=== PATIENT | female | born 1940 | race Caucasian/White ===

== ENCOUNTER 2022-01-17 10:56 | Day surgery (SDC) | payer MEDICARE, BC, SELFPAY ==
[2022-01-17 11:18] VITALS: BP 185/90; PULSE 97; RESP 18; TEMP 36.3; O2SAT 98
[2022-01-17] MEDS: Tropicam./Phenyleph. (1/2.5%) 5 ML BTL OS ×3 (11:20→11:28)
--- NOTE | 2022-01-17 11:37 | W.ANESPRE ---
General Info Date of Service Date Performed: 01/17/22 Height: 5 ft 2 in Weight: 73.7 kg Body Mass Index (BMI): 29.7 Surgical Procedure: Operation Date: 01/17/22 14:40 Proposed Procedure Side Surgeon p Cataract Extraction with IOL Implant w/Glaucoma Stent Left Vega Gleason MD Meds Allergies and Home Medications Allergies Allergy/AdvReac Type Severity Reaction Status Date / Time Sulfa (Sulfonamide Allergy Intermediate Skin Rash Verified 01/17/22 11:10 Antibiotics) sulfamethoxazole Allergy Intermediate Hives Verified 01/17/22 11:10 [From Bactrim] trimethoprim [From Bactrim] Allergy Intermediate Hives Verified 01/17/22 11:10 Home Medication Medication Instructions Recorded conjugated estrogens 0.625 mg/gram 0.625 mg vaginal DIRECTED 01/13/22 vaginal cream diazepam 5 mg tablet 5 mg PO QHS PRN 01/13/22 latanoprost 0.005 % eye drops 1 drp ophthalmic (eye) HS 01/13/22 lisinopril 20 mg tablet 40 mg PO DAILY 01/13/22 multivitamin 1 tab PO DAILY 01/13/22 pravastatin 10 mg tablet 40 mg PO QHS 01/14/22 Current Visit Medications: Current Medications Generic Name Dose Route Start Last Admin Trade Name Freq PRN Reason Stop Dose Admin Acetaminophen 1,000 mg 01/17/22 06:00 Acetaminophen 500 Mg Tab PO Q4H PRN PRN Miscellaneous Medication 0 ml 01/17/22 06:00 Prednisolone 1%, Moxifloxacin 0.5%, Nepafenac 0.1% 5ml Btl OS DIRECTED [facility] Miscellaneous Medication 0 ml 01/17/22 06:00 01/17/22 11:28 Tropicam./Phenyleph. (1/2.5%) 5 Ml Btl OS 1 drp DIRECTED JULIETTE Administration Tetracaine HCl 0 ml 01/17/22 06:00 Tetracaine 0.5% 4 Ml Btl OS DIRECTED [facility] Medical History Medical History Anxiety Arthritis Atrophic vaginitis Cataract Depression Elevated fasting glucose Essential hypertension Foot pain, left Hyperlipemia Ingrown toenail of right foot Migraines Osteoporosis Polymyalgia Surgical History Surgical History History of tonsillectomy Tobacco Smoking/Tobacco Use Status: Never Substance Use Substance use: Never Substance use type: does not use Vital Signs and Lab Results Vital Signs Most Recent Vital Signs in EMR: Most Recent Vital Signs Temp Pulse Resp BP Pulse Ox 36.3 C L 97 H 18 185/90 H 98 01/17/22 11:18 01/17/22 11:18 01/17/22 11:18 01/17/22 11:18 01/17/22 11:18 Lab Results Blood Type / Crossmatch: No Data to Display Complete Blood Count: No Data to Display Complete Metabolic Panel: No Data to Display Liver Function Panel: No Data to Display Coagulation Panel: No Data to Display Cardiac Panel: No Data to Display Arterial Blood Gas: No Data to Display Venous Blood Gas: No Data to Display Pancreas Panel: No Data to Display Thyroid Panel: No Data to Display Infectious Disease: No Data to Display Blood Cultures: No Data to Display Toxicology Panel: No Data to Display Anesthesia Assessment and Plan Anesthesia History Personal History: No History of Anesthesia Complications Family History: No Family History of Anesthesia Complications Exercise Tolerance Exercise Tolerance: Metabolic Equivalents>4 Pertinent Negatives Pertinent Negatives: No Symptoms of GERD Cardiac & Pulmonary Exam Cardiac Exam: Normal S1/S2 Heart Sounds Pulmonary Exam: Clear Bilateral Breath Sounds Implantable Cardiac Device Does patient have a Pacemaker or an ICD?: No Airway Exam Known Difficult Airway: No Mallampati Class: 2 Mouth Opening: Normal (> 3cm) Thyromental Distance: Greater than 3 cm Neck Range of Motion: Full ROM Neck Circumference: Normal Teeth Condition: Normal Dentition ASA Classification ASA Score: ASA 2 Emergency Case?: No NPO Status NPO Status: NPO Clears >2 hours, Solids >8 hours Anesthesia Plan Resuscitation Status: Full Code Anesthesia Technique: MAC Anesthesia Airway Planned: Natural Airway Monitors Used: Standard Monitors
[2022-01-17 11:51] VITALS: BMI 29.7
[2022-01-17] MEDS: Tetracaine 0.5% 4 ML BTL OS (12:56)
[2022-01-17] MEDS: Lidocaine 2% Jelly 6 ML SYR (13:00)
[2022-01-17] MEDS: Povidone-Iodine Ophth 30 ML BTL (13:00)
[2022-01-17] MEDS: Balanced Salt Soln.-PLUS 500 ML BAG (13:05)
[2022-01-17] MEDS: Duovisc Viscoelastic System EACH 1 EACH (13:05)
[2022-01-17 13:39] VITALS: BP 141/77; PULSE 86; RESP 18; TEMP 36.5; O2SAT 96
--- NOTE | 2022-01-17 13:39 | W.PM.DSUDISC ---
Date of service: 01/17/22 Time of Service: 13:39 Discharge Plan Disposition Patient Disposition: HOME Condition: Good Discharge Details Attending Provider: Vega Gleason Primary Care Provider: Sera Reyez Home Meds and New Rx's Prescriptions: No Action multivitamin Tablet 1 tab PO DAILY latanoprost 0.005 % Drops 1 drp OPHTHALMIC (EYE) HS lisinopril 20 mg Tablet 40 mg PO DAILY conjugated estrogens 0.625 mg/gram Cream 0.625 mg VAGINAL DIRECTED Rx Instructions: off 5 days; repeat cycle diazepam 5 mg Tablet 5 mg PO QHS PRN pravastatin 10 mg Tablet 40 mg PO QHS Discharge Orders Discharge Orders: Discharge Order (Routine); Ordered 01/17/22 Ordered By: Vega Gleason DS: Diagnosis Discharge Diagnosis (1) Nuclear sclerotic cataract of left eye: Status: Resolved (2) Primary open angle glaucoma (POAG) of left eye, mild stage: Status: Chronic
--- NOTE | 2022-01-17 13:40 | W.PM.OP ---
Date of service: 01/17/22 Time of Service: 13:40 Operative Note Operative Note DATE OF PROCEDURE: 01/17/22 PRE-OP DIAGNOSIS: Nuclear cataract, left eye Primary open-angle glaucoma, left eye, mild stage PROCEDURE: 1. Cataract extraction using phacoemulsification with intraocular lens implant, left eye 2. Insertion of multiple anterior segment aqueous drainage devices (Glaukos iStent inject x 2) into trabecular meshwork, left eye SURGEON: Vega Gleason ANESTHESIA TYPE: Local By Surgeon and MAC Refer to Anesthesia Record ESTIMATED BLOOD LOSS: 0 PATHOLOGY: none sent COMPLICATIONS: None Patient was transported to: same day Patient's condition: stable Implants: 1. [employer] / [employer] Tecnis ZCB00 intraocular lens 2. Glaukos iStent inject trabecular micro-bypass stent x 2 Indications: 1. Progressive decreased vision due to cataract, left eye 2. Primary open angle glaucoma, left eye Procedure Description: CATARACT SURGERY OPERATIVE REPORT PREOPERATIVE DIAGNOSIS: Nuclear cataract, left eye Primary open-angle glaucoma, left eye, mild stage POSTOPERATIVE DIAGNOSIS: Same OPERATION: 1. Cataract extraction using phacoemulsification with posterior chamber intraocular lens implant, left eye. 2. Insertion of multiple anterior segment aqueous drainage devices (Glaukos iStent inject x 2) into trabecular meshwork, left eye IOL: IOL Donor Recruitment Manager/Model: [employer] Vision / MATHEW Tecnis ZCB00 IOL Power: + 25.0 diopters IOL Serial Number: [id number] Optic Diameter: 6.0mm Haptic/Overall Diameter: 13.0mm PHACO INFO: Luca [employer]ion Vision System with OZil and Active Fluidics Cumulative Dispersed Energy (CDE): 20.67 seconds TRABECULAR MICRO-BYPASS STENT INFO: Glaukos iStent inject x 2 Reference Number: [id number] Serial Number: [id number] SURGEON: Vega Gleason MD, RAQUEL ANESTHESIA: Monitored Anesthesia Care (MAC), with local sub-tenon's anesthetic infiltration COMPLICATIONS: None SPECIMENS: None INDICATIONS FOR PROCEDURE: The patient is a 81-year-old lady with history of diminished visual acuity in her left eye secondary to the development of significant nuclear cataract. She also has a history of primary open-angle glaucoma which is managed on 1 medication. The option of cataract surgery was offered to the patient and she wished to proceed. In addition, the option of glaucoma stent procedure at the time of cataract surgery was also offered to the patient and she wished to proceed with that as well. PROCEDURE: The correct surgical eye was identified and marked as the left eye and the pupil was dilated in the preoperative area using mydriatics and cycloplegics. The dilated pupil size was 6.0 mm. Oral sedation was administered in the form of an Imprimis MKO Melt (midazolam 3mg/ketamine 25mg/ondansetron 2mg). The patient was brought to the operating room where cardiopulmonary monitoring was instituted and surgical time-out was performed, confirming the correct operative eye and IOL power. Topical anesthesia was administered and ophthalmic povidone-iodine 5% was instilled into the conjunctival fornices. Lidocaine gel was applied to the cornea and the tressa-ocular area was prepped with Betadine 10% solution and draped in the usual sterile fashion for intraocular surgery, including an aperture drape. A Tegaderm transparent film dressing was cut in half and used to cover the lashes and lid margins. Care was taken to sequester the lashes and lid margins under the Tegaderm dressing. A lid speculum was placed between the lids of the operative eye and the Luca Lux[employer] Revalia operating microscope was maneuvered into position. Domenic scissors were then used to make a conjunctival buttonhole approximately 6mm posterior to the limbus in the inferonasal quadrant. Blunt dissection was carried out to expose bare sclera, and a blunt-tipped sub-tenon?s anesthesia cannula was introduced and passed posteriorly along the globe where non-preserved plain lidocaine was injected into posterior sub-Tenon?s space. A sideport knife was used to make a paracentesis port superior/superiortemporally. Intraocular phenylephrine/lidocaine was injected into the anterior chamber. The anterior chamber was then filled with viscoelastic. A 2.4mm keratome knife was used to create a half-thickness groove at the limbus and then to construct a three-plane near-clear corneal tunnel extending 2.0mm into clear cornea in the temporal position. . A flap was raised on the anterior capsule and capsulorhexis forceps were used to complete a continuous curvilinear capsulorhexis of 5.0 mm. Balanced salt solution was then used to perform cortical cleaving hydrodissection and nuclear hydrodelineation until the lens could be freely rotated within the capsular bag. The lens nucleus was then disassembled and removed within the capsular bag and iris plane using phacoemulsification. The lens nucleus was noted to be quite dense. Additional Viscoat was injected into the anterior chamber intermittently to protect the corneal endothelium. Residual cortical material was removed using the 45-degree angled silicone I/A tip with 0.3mm port. The posterior capsule was carefully polished to remove as much residual lens epithelial cells as safely possible. The capsular bag was then inflated and the anterior chamber deepened with viscoelastic. The lens implant described above was inserted into the capsular bag using the MATHEW [place] Injector. A Kuglen hook was used to dial the IOL into position. The anterior chamber was then slightly over-filled with viscoelastic. The microsope and the patient's head were tilted into the ideal position for viewing of the anterior chamber angle. Viscoelastic was placed on the cornea followed by a surgical gonionlens, and the anterior chamber angle landmarks were identified. The Kaboo Cloud Cameraukos iStent inject handpiece was introduced into the anterior chamber and the insertion sleeve was retracted once the injector was distal to the pupillary margin. The trocar was advanced through the central portion of the trabecular meshwork and into the back wall of Schlemm's canal in the superiornasal quadrant, with care taken to ensure the micro-insertion tube was perpendicular to the trabecular meshwork. The trabecular meshwork was lightly dimpled and the stent was injected without difficulty. The same procedure was then performed in the inferiornasal quradrant. Both stents were then examined and noted to be in good position within the trabecular meshwork. The microscope and the patients head were returned to the normal coaxial position. Viscoelatic was then removed from the anterior chamber using the I/A handpiece. The lens implant was noted to center nicely within the capsular bag. The incisions were stromally hydrated, and the anterior chamber was reformed using BSS. Then 0.5cc of moxifloxacin 1.0mg/ml were injected into the capsular bag and anterior chamber. The incisions were checked with a Weck spear and found to be secure. Several drops of ophthalmic povidone-iodine 5% were then applied to the eye followed by two drops of Imprimis combination prednisolone/moxifloxacin/nepafenac solution. The drapes were removed and a clear plastic protective eye shield was placed over the eye. The patient was then returned to Same Day Surgery in stable condition.
[2022-01-17 13:58] VITALS: BP 130/72; PULSE 86; RESP 95; TEMP 36.5; O2SAT 96
--- NOTE | 2022-01-17 14:04 | W.ANESPOSTOP ---
Postoperative Evaluation Date, Time and Location Date Performed: 01/17/22 Time Performed: 13:55 Patient Location: Day Surgery Unit Vital Signs Most Recent Imported Vital Signs: Most Recent Vital Signs Temp Pulse Resp BP Pulse Ox 36.5 C 86 95 H 130/72 96 01/17/22 13:58 01/17/22 13:58 01/17/22 13:58 01/17/22 13:58 01/17/22 13:58 Pain Score Most Recent Pain Score: Most Recent Pain Score Pain Level 0 01/17/22 13:39 Assessment Mental Status: Awake (Alert & Oriented to Patient Baseline) Airway and Respiratory Function: Patent airway with normal (patient baseline) respiratory exam Cardiovascular Function: Hemodynamically Stable Hydration Status: Adequately Hydrated Nausea & Vomiting: No Nausea or Vomiting Pain: Pt. Denies Any Pain Peripheral Nerve Block: Patient did not receive a nerve block
== END 2022-01-17 14:08 | disposition home or self-care (01) ==
PROVIDERS: PCP Family Medicine; Visit Provider Ophthalmology
PROC: (CPT 66991; principal; 2022-01-17 14:30)
DX: H25.12 Age-related nuclear cataract, left eye (principal); H40.1121 Primary open-angle glaucoma, left eye, mild stage
CPT/HCPCS: 66991; V2632; C1783

== ENCOUNTER 2022-01-24 10:22 | Day surgery (SDC) | payer MEDICARE, BC, SELFPAY ==
--- NOTE | 2022-01-24 06:46 | ANES.PREOP_ITS ---
General Info Date of Service Date Performed: 01/24/22 Height: 5 ft 3 in Weight: 74 kg Body Mass Index (BMI): 28.9 Surgical Procedure: Operation Date: 01/24/22 13:25 Proposed Procedure Side Surgeon p Cataract Extraction with IOL Implant w/Glaucoma Stent Right Vega Gleason MD Meds Allergies and Home Medications Allergies Allergy/AdvReac Type Severity Reaction Status Date / Time Sulfa (Sulfonamide Allergy Intermediate Skin Rash Verified 01/24/22 11:14 Antibiotics) sulfamethoxazole Allergy Intermediate Hives Verified 01/24/22 11:14 [From Bactrim] trimethoprim [From Bactrim] Allergy Intermediate Hives Verified 01/24/22 11:14 Home Medication Medication Instructions Recorded conjugated estrogens 0.625 mg/gram 0.625 mg vaginal DIRECTED 01/13/22 vaginal cream diazepam 5 mg tablet 5 mg PO QHS PRN 01/13/22 latanoprost 0.005 % eye drops 1 drp ophthalmic (eye) HS 01/13/22 lisinopril 20 mg tablet 20 mg PO BID 01/13/22 multivitamin 1 tab PO DAILY 01/13/22 pravastatin 10 mg tablet 40 mg PO QHS 01/14/22 Current Visit Medications: Current Medications Generic Name Dose Route Start Last Admin Trade Name Freq PRN Reason Stop Dose Admin Acetaminophen 1,000 mg 01/24/22 06:00 Acetaminophen 500 Mg Tab PO Q4H PRN PRN Miscellaneous Medication 0 ml 01/24/22 06:00 Prednisolone 1%, Moxifloxacin 0.5%, Nepafenac 0.1% 5ml Btl OD DIRECTED [facility] Miscellaneous Medication 0 ml 01/24/22 06:00 Tropicam./Phenyleph. (1/2.5%) 5 Ml Btl OD DIRECTED [facility] Tetracaine HCl 0 ml 01/24/22 06:00 Tetracaine 0.5% 4 Ml Btl OD DIRECTED [facility] PFSH Active Problems Active Problems: Problem Status Onset Code Nuclear sclerotic cataract of left eye H25.12 Primary open angle glaucoma (POAG) of left eye, mild stage H40.1121 Nuclear sclerotic cataract of right eye H25.11 Medical History Medical History (Updated 01/19/22 @ 19:06 by Vega Gleason MD) Anxiety Arthritis Atrophic vaginitis Cataract Depression Elevated fasting glucose Essential hypertension Foot pain, left Hyperlipemia Ingrown toenail of right foot Migraines Osteoporosis Polymyalgia Surgical History Surgical History (Updated 01/21/22 @ 11:23 by Taina Huerta RN) History of cataract surgery History of tonsillectomy Tobacco Smoking/Tobacco Use Status: Never Substance Use Substance use: Never Substance use type: does not use Vital Signs and Lab Results Vital Signs Most Recent Vital Signs in EMR: Temp Pulse Resp BP Pulse Ox 36.3 C L 103 H 16 174/78 H 97 01/24/22 11:18 01/24/22 11:18 01/24/22 11:18 01/24/22 11:18 01/24/22 11:18 Lab Results Blood Type / Crossmatch: No Data to Display Complete Blood Count: No Data to Display Complete Metabolic Panel: No Data to Display Liver Function Panel: No Data to Display Coagulation Panel: No Data to Display Cardiac Panel: No Data to Display Arterial Blood Gas: No Data to Display Venous Blood Gas: No Data to Display Pancreas Panel: No Data to Display Thyroid Panel: No Data to Display Infectious Disease: No Data to Display Blood Cultures: No Data to Display Toxicology Panel: No Data to Display Anesthesia Assessment and Plan Anesthesia History Personal History: No History of Anesthesia Complications Family History: No Family History of Anesthesia Complications Exercise Tolerance Exercise Tolerance: Metabolic Equivalents>4 Cardiac & Pulmonary Exam Cardiac Exam: Normal S1/S2 Heart Sounds Pulmonary Exam: Clear Bilateral Breath Sounds Implantable Cardiac Device Does patient have a Pacemaker or an ICD?: No Airway Exam Known Difficult Airway: No Mallampati Class: 2 Mouth Opening: Normal (> 3cm) Thyromental Distance: Greater than 3 cm Neck Range of Motion: Full ROM Neck Circumference: Normal Teeth Condition: Normal Dentition ASA Classification ASA Score: ASA 2 Emergency Case?: No NPO Status NPO Status: NPO Clears >2 hours, Solids >8 hours Anesthesia Plan Resuscitation Status: Full Code Anesthesia Technique: MAC Anesthesia Airway Planned: Natural Airway Monitors Used: Standard Monitors Preoperative Comments:: 81 yo female for repeat cataract. did have MKO last time. no interval change and would like MKO again. Sig PMHx: anxiety, HTN, polymyalgia, depression, never smoker.
[2022-01-24] MEDS: Tropicam./Phenyleph. (1/2.5%) 5 ML BTL OD ×3 (11:17→11:42)
[2022-01-24 11:18] VITALS: BP 174/78; PULSE 103; RESP 16; TEMP 36.3; O2SAT 97
[2022-01-24 11:24] VITALS: BMI 28.9
[2022-01-24] MEDS: Povidone-Iodine Ophth 30 ML BTL (12:15)
[2022-01-24] MEDS: Lidocaine 2% Jelly 6 ML SYR (12:15)
[2022-01-24] MEDS: Tetracaine 0.5% 4 ML BTL OD (12:15)
[2022-01-24] MEDS: Lidocaine 1% Pres-Free 5 ML VIAL (12:20)
[2022-01-24] MEDS: Balanced Salt Soln.-PLUS 500 ML BAG (12:24)
[2022-01-24] MEDS: Duovisc Viscoelastic System EACH 1 EACH (12:24)
[2022-01-24 12:50] VITALS: BP 124/63; PULSE 87; RESP 16; TEMP 36.4; O2SAT 99
--- NOTE | 2022-01-24 12:51 | W.PM.DSUDISC ---
Date of service: 01/24/22 Time of Service: 12:51 Discharge Plan Disposition Patient Disposition: HOME Condition: Good Discharge Details Attending Provider: Vega Gleason Primary Care Provider: Sera Reyez Home Meds and New Rx's Prescriptions: No Action multivitamin Tablet 1 tab PO DAILY latanoprost 0.005 % Drops 1 drp OPHTHALMIC (EYE) HS lisinopril 20 mg Tablet 20 mg PO BID conjugated estrogens 0.625 mg/gram Cream 0.625 mg VAGINAL DIRECTED Rx Instructions: off 5 days; repeat cycle diazepam 5 mg Tablet 5 mg PO QHS PRN pravastatin 10 mg Tablet 40 mg PO QHS Discharge Instructions Stand Alone Forms: Post-op Topical Cataract, Mimi Chu (DSU) DS: Diagnosis Discharge Diagnosis (1) Nuclear sclerotic cataract of right eye: Status: Resolved (2) Primary open angle glaucoma (POAG) of right eye, mild stage: Status: Chronic
--- NOTE | 2022-01-24 12:52 | ROE_ITS ---
Date of service: 01/24/22 Time of Service: 12:56 Operative Note Operative Note DATE OF PROCEDURE: 01/24/22 PRE-OP DIAGNOSIS: Nuclear cataract, right eye Primary open-angle glaucoma, right eye POST-OP DIAGNOSIS: same PROCEDURE: 1. Cataract extraction using phacoemulsification with intraocular lens implant, right eye 2. Insertion of anterior segment aqueous drainage device(Glaukos iStent inject) into trabecular meshwork, right eye SURGEON: Vega Gleason ANESTHESIA TYPE: Local By Surgeon and MAC Refer to Anesthesia Record PATHOLOGY: none sent COMPLICATIONS: None Patient was transported to: same day Patient's condition: stable Implants: 1. [employer] / [employer] Tecnis ZCB00 intraocular lens 2. Glaukos iStent inject trabecular micro-bypass stent Indications: 1. Progressive decreased vision due to cataract, right eye 2. Primary open angle glaucoma, right eye Procedure Description: CATARACT SURGERY OPERATIVE REPORT PREOPERATIVE DIAGNOSIS: Nuclear cataract, right eye Primary open-angle glaucoma, right eye, mild stage POSTOPERATIVE DIAGNOSIS: Same OPERATION: 1. Cataract extraction using phacoemulsification with posterior chamber intraocular lens implant, right eye. 2. Insertion of anterior segment aqueous drainage devices (Glaukos iStent inject) into trabecular meshwork, right eye IOL: IOL Manager Oracle/Model: [employer] / MATHEW Tecnis ZCB00 IOL Power: + 24.5 diopters IOL Serial Number: [id number] Optic Diameter: 6.0mm Haptic/Overall Diameter: 13.0mm PHACO INFO: Luca [employer] Vision System with OZil and Active Fluidics Cumulative Dispersed Energy (CDE): 15.51 seconds TRABECULAR MICRO-BYPASS STENT INFO: Glaukos iStent inject Reference Number: [id number] Serial Number: [id number] SURGEON: Vega Gleason MD, RAQUEL ANESTHESIA: Monitored Anesthesia Care (MAC), with local sub-tenon's anesthetic infiltration COMPLICATIONS: None SPECIMENS: None INDICATIONS FOR PROCEDURE: The patient is a 81-year-old lady with history of primary open-angle glaucoma, mild stage, controlled on 1 medication. She has also developed significant bilateral cataracts. She has already undergone cataract surgery in her left eye with implantation of glaucoma stent. She is doing well postoperatively, and now presents for cataract surgery in the right eye, also with implantation of glaucoma stent. PROCEDURE: The correct surgical eye was identified and marked as the right eye and the pupil was dilated in the preoperative area using mydriatics and cyc loplegics. The dilated pupil size was 5.5 mm. Oral sedation was administered in the form of an Imprimis MKO Melt (midazolam 3mg/ketamine 25mg/ondansetron 2mg). The patient was brought to the operating room where cardiopulmonary monitoring was instituted and surgical time-out was performed, confirming the correct operative eye and IOL power. Topical anesthesia was administered and ophthalmic povidone-iodine 5% was instilled into the conjunctival fornices. Lidocaine gel was applied to the cornea and the tressa-ocular area was prepped with Betadine 10% solution and draped in the usual sterile fashion for intraocular surgery, including an aperture drape. A Tegaderm transparent film dressing was cut in half and used to cover the lashes and lid margins. Care was taken to sequester the lashes and lid margins under the Tegaderm dressing. A lid speculum was placed between the lids of the operative eye and the Luca [employer] Rev[employer] operating microscope was maneuvered into position. Domenic scissors were then used to make a conjunctival buttonhole approximately 6mm posterior to the limbus in the inferonasal quadrant. Blunt dissection was carried out to expose bare sclera, and a blunt-tipped sub-tenon?s anesthesia cannula was introduced and passed posteriorly along the globe where non- preserved plain lidocaine was injected into posterior sub-Tenon?s space. A sideport knife was used to make a paracentesis port inferiortemporally. Intraocular phenylephrine/lidocaine was injected into the anterior chamber. The anterior chamber was then filled with viscoelastic. A 2.4mm keratome knife was used to construct a 2-plane near-clear corneal tunnel extending 2.0mm into clear cornea superiortemporally. . A flap was raised on the anterior capsule and capsulorhexis forceps were used to complete a continuous curvilinear capsulorhexis of 5.0 mm. Balanced salt solution was then used to perform cortical cleaving hydrodissection and nuclear hydrodelineation until the lens could be freely rotated within the capsular bag. The lens nucleus was then disassembled and removed within the capsular bag and iris plane using phacoemulsification. Residual cortical material was removed using the 45-degree angled silicone I/A tip with 0.3mm port. The posterior capsule was carefully polished to remove as much residual lens epithelial cells as safely possible. The capsular bag was then inflated and the anterior chamber deepened with viscoelastic. The lens implant described above was inserted into the capsular bag using the MATHEW [employer] [place] [employer] [place] Injector. A Kuglen hook was used to dial the IOL into position. The anterior chamber was then slightly over-filled with viscoelastic. The microsope and the patient's head were tilted into the ideal position for viewing of the anterior chamber angle. Viscoelastic was placed on the cornea followed by a surgical gonionlens, and the anterior chamber angle landmarks were identified. The [employer] iStent inject handpiece was introduced into the anterior chamber and the insertion sleeve was retracted once the injector was distal to the pupillary margin. The trocar was advanced through the central portion of the trabecular meshwork and into the back wall of Schlemm's canal in the inferonasal quadrant, with care taken to ensure the micro-insertion tube was perpendicular to the trabecular meshwork. The trabecular meshwork was lightly dimpled and the stent was injected without difficulty. The microscope and the patients head were returned to the normal coaxial position. Viscoelatic was then removed from the anterior chamber using the I/A handpiece. The lens implant was noted to center nicely within the capsular bag. The incisions were stromally hydrated, and the anterior chamber was reformed using BSS. Then 0.5cc of moxifloxacin 1.0mg/ml were injected into the capsular bag and anterior chamber. The incisions were checked with a Weck spear and found to be secure. Several drops of ophthalmic povidone-iodine 5% were then applied to the eye followed by two drops of Imprimis combination prednisolone/moxifloxacin/nepafenac solution. The drapes were removed and a clear plastic protective eye shield was placed over the eye. The patient was then returned to Same Day Surgery in stable condition.
--- NOTE | 2022-01-24 13:05 | W.ANESPOSTOP ---
Postoperative Evaluation Date, Time and Location Date Performed: 01/24/22 Time Performed: 13:05 Patient Location: Day Surgery Unit Vital Signs Most Recent Imported Vital Signs: Most Recent Vital Signs Temp Pulse Resp BP Pulse Ox 36.4 C L 87 16 124/63 99 01/24/22 12:50 01/24/22 12:50 01/24/22 12:50 01/24/22 12:50 01/24/22 12:50 Pain Score Most Recent Pain Score: Most Recent Pain Score Pain Level 0 01/24/22 12:50 Assessment Mental Status: Awake (Alert & Oriented to Patient Baseline) Airway and Respiratory Function: Patent airway with normal (patient baseline) respiratory exam Cardiovascular Function: Hemodynamically Stable Hydration Status: Adequately Hydrated Nausea & Vomiting: No Nausea or Vomiting Pain: Pt. Denies Any Pain Peripheral Nerve Block: Patient did not receive a nerve block
[2022-01-24 13:20] VITALS: BP 151/70; PULSE 78; RESP 16; TEMP 36.4; O2SAT 98
== END 2022-01-24 13:30 | disposition home or self-care (01) ==
LOC: SUR 10:22
PROVIDERS: PCP Family Medicine; Visit Provider Ophthalmology
PROC: (CPT 66991; principal; 2022-01-24 13:15)
DX: H25.11 Age-related nuclear cataract, right eye (principal); H40.1111 Primary open-angle glaucoma, right eye, mild stage
CPT/HCPCS: 66991; V2632; C1783